=== PATIENT | female | born 1970 | race Caucasian/White ===

== ENCOUNTER 2019-02-11 15:58 | Emergency (ER) | payer OTHER ==
[~2019-02-11] VITALS: Ht 170.2 cm; Wt 80.0 kg
[2019-02-11 16:15] VITALS: BP 111/72
[2019-02-11] MEDS ORDERED: AZIT250T PO (17:10)
[2019-02-11] MEDS ORDERED: BENZ-16 PO (17:10)
== END 2019-02-11 17:23 | disposition home or self-care (01) ==
LOC: ER 15:59
DX: J40 Bronchitis, not specified as acute or chronic (principal); Z59.0 Homelessness
CPT/HCPCS: 99283

== ENCOUNTER 2019-05-18 18:48 | Emergency (ER) | payer MEDICAID ==
[~2019-05-18] VITALS: Ht 170.2 cm; Wt 70.5 kg
[~2019-05-18 18:48] MED LIST: AZIT250T PO
[2019-05-18 19:32] VITALS: BP 90/54
[2019-05-18] MEDS ORDERED: PIP1KIT5 TP (20:39)
[2019-05-18] MEDS ORDERED: PERM60CR19 TP (20:39)
== END 2019-05-18 20:54 | disposition home or self-care (01) ==
LOC: ER 18:49
DX: B86 Scabies (principal); B85.0 Pediculosis due to Pediculus humanus capitis; Z59.0 Homelessness; Z88.1 Allergy status to other antibiotic agents; Z79.899 Other long term (current) drug therapy
CPT/HCPCS: 99283